=== PATIENT | female | born 1935 | race Caucasian/White ===

== ENCOUNTER 2020-06-10 07:59 | Observation (INO) | payer MEDICARE ==
[~2020-06-10] VITALS: Ht 161.3 cm; Wt 58.0 kg
[~2020-06-10 07:59] MED LIST: KEFLEX500 MG PO
--- NOTE | 2020-06-10 08:00 | NUR ---
PATIENT TO ROOM VIA EMS MD OTILIA AT BEDSIDE TO ASSESS PT.
--- NOTE | 2020-06-10 08:10 | NUR ---
STROKE ALERT CALLED AT 0810. PATIENT TAKEN TO CT SCAN AT 0811 DR ROMERO ON SCREEN AT 0813, HISTORY WAS GIVEN.
--- NOTE | 2020-06-10 08:20 | NUR ---
AFTER CT BRAIN WAS COMPLETED, NIH COMPLETED. DR VALENZUELA DOES NOT WANT TPA AND WOULD LIKE A NEURO WORKUP. HE WILL BE CONTACCTING DR SIMONS WITH PLAN OF CARE.
--- NOTE | 2020-06-10 08:40 | NUR ---
PATIENT RETURNED FROM CT SCAN IN STABLE CONDITION. UPDATED ON PLAN OF CARE AND PENDING RESULTS.
[2020-06-10 08:51] LABS: HEMATOCRIT 44.2 % (37.0-47.0); HEMOGLOBIN 13.8 g/dl (12.0-16.0); IMMATURE GRANULOCYTES 0.4 % (0.0-5.0); MEAN CELL VOLUME 96.9 fL CALC (80.0-100.0); MEAN CORPUSCULAR HGB 30.3 pG CALC (26.0-32.0); MEAN CORPUSCULAR HGB CONC 31.2 g/dL CAL (32.0-36.0); NEUT# 4.95 thou/uL (2.00-7.15); RED BLOOD COUNT 4.56 mill/uL (4.20-5.60); RED CELL DISTRI WIDTH 14.1 % (11.5-15.5)
--- NOTE | 2020-06-10 09:00 | NUR ---
DR SIMONS AT BEDSIDE TO STAND PATIENT UP. SHE WAS ABLE TO STAND WITH ASSIST AND WEAKNESS NOTED TO RIGHT SIDE ONLY WHEN STANDING.
[2020-06-10 09:03] LABS: ALBUMIN 4.4 g/dL (3.2-5.0); ALKALINE PHOSPHATASE 81 u/l (38-126); ANION GAP 12 (6-22 (CALC)); BILIRUBIN, TOTAL 0.5 mg/dL (0.0-1.4); BUN 16 mg/dL (8-23); BUN/CREATININE RATIO 26 (12-20 (CALC)); CARBON DIOXIDE 26 mmol/l (22-30); CHLORIDE 104 mmol/l (95-108); CREATININE 0.6 mg/dL (0.5-1.0); GFR > 60 ML/MIN (>=60 (CALC)); GFR FOR AFR.AMER. > 60 ML/MIN (>=60 (CALC)); POTASSIUM 4.1 mmol/l (3.5-5.1); SGOT/AST 33 u/l (9-36); SODIUM 137 mmol/l (137-146); TOTAL PROTEIN 7.9 g/dL (6.3-8.2)
[2020-06-10 09:04] LABS: PROTHROMBIN TIME 9.6 SECONDS (9.0-12.5)
--- NOTE | 2020-06-10 09:30 | NUR ---
PATIENT RESTING IN STRETCHER IN NAD AND DENIES ANY NEEDS. SPEECH REMAINS CLEAR.
[2020-06-10 09:45] LABS: URINE BILIRUBIN - DIPSTICK NEGATIVE (NEGATIVE); URINE BLOOD DIPSTICK NEGATIVE (NEGATIVE); URINE COLOR YELLOW; URINE GLUCOSE - DIPSTICK NEGATIVE (NEGATIVE); URINE KETONE NEGATIVE (NEGATIVE); URINE NITRITE - DIPSTICK NEGATIVE (Negative); URINE PROTEIN - DIPSTICK NEGATIVE (NEG-TRACE); URINE UROBILINOGEN - DIPSTICK 0.2 E.U./dL (0.2)
[2020-06-10 09:50] LABS: URINE LEUK ESTERASE MODERATE (NEGATIVE)
[2020-06-10 09:51] LABS: URINE BACTERIA RARE hpf
--- NOTE | 2020-06-10 10:09 | NUR ---
recieved for care. Awaiting admission. no c/o call richardson in reach.
--- NOTE | 2020-06-10 10:39 | NUR ---
assisted to bedpan.
--- NOTE | 2020-06-10 11:25 | NUR ---
Occupational therapist at bedside
--- NOTE | 2020-06-10 12:25 | NUR ---
SPOUSE DEPARTED,PATIENT SITTING IN CHAIR. STABLE. CALL AGUIAR IN REACH
--- NOTE | 2020-06-10 12:44 | NUR ---
PATIENT SITTING AT BEDSIDE FEELING MONITOR CABLES. REASSURRED THEY ARE FOR MONITORING HER STATUS. PATIENT APPEARS CONFUSED BUT FRIENDLY.
--- NOTE | 2020-06-10 12:46 | NUR ---
PATIENT SEATED IN CHAIR AT BEDSIDE. CALL AGUIAR WITHIN REACH.
--- NOTE | 2020-06-10 14:00 | NUR ---
PATIENTSPOUSE TO DESK, STATES HE WOULD LIKE TO TAKE HIS HOME AND SIGN OUT AMA. REQUESTS TO SEE [facility] TO POSSIBLY GET SOME RESOURCES FOR ASSISTANCE AT HOME.
--- NOTE | 2020-06-10 14:05 | NUR ---
FISHING VESSEL MATE PRESENT TO DISCUSS .
--- NOTE | 2020-06-10 14:18 | NUR ---
Patient decides to leave AMA. Multiple attempts made to ecourage patient to remain here for continued treatment. Explained to patient all risks of leaving against medical advice including . Pt verbalized understanding of all risks. Pt also encouraged to return to [facility] at any time, especially if symptoms continue or become worse. Pt verbalized understanding.
[2020-06-10 14:19] VITALS: BP 128/78
== END 2020-06-10 14:19 | disposition left against medical advice (07) ==
LOC: ED 07:59 → ED-I 09:37 → ED 09:45 → ED-I 09:46 → ED 14:19 → ED-I 14:19
PROVIDERS: Family Medicine; ADMIT Internal Medicine; ATTEND Internal Medicine
DX: G45.9 Transient cerebral ischemic attack, unspecified (principal); F03.90 Unspecified dementia, unspecified severity, without behavioral disturbance, psychotic disturbance, mood disturbance, and anxiety; Z20.822 Contact with and (suspected) exposure to COVID-19
CPT/HCPCS: Q9967

== ENCOUNTER 2022-08-17 10:42 | Emergency (ER) | payer MEDICARE ==
[~2022-08-17] VITALS: Ht 160 cm; Wt 66.9 kg
[2022-08-17 10:54] VITALS: BP 143/83
[2022-08-17 11:00] VITALS: BP 119/70
[2022-08-17 11:35] LABS: BASO% 0.8 % (0-3); EOS% 1.1 % (0-8); HEMATOCRIT 44.3 % (37.0-47.0); HEMOGLOBIN 14.2 g/dl (12.0-16.0); IMMATURE GRANULOCYTES 0.2 % (0.0-5.0); LYMPH% 14.1 % (15-41); MEAN CELL VOLUME 94.7 fL CALC (80.0-100.0); MEAN CORPUSCULAR HGB 30.3 pG CALC (26.0-32.0); MEAN CORPUSCULAR HGB CONC 32.1 g/dL CAL (32.0-36.0); MONO% 8.2 % (2-13); NEUT# 3.97 thou/uL (2.00-7.15); NEUT% 75.6 % (42-76); RED BLOOD COUNT 4.68 mill/uL (4.20-5.60); RED CELL DISTRI WIDTH 13.4 % (11.5-15.5)
[2022-08-17 11:47] LABS: ALKALINE PHOSPHATASE 102 u/l (38-126); ANION GAP 7 (6-22 (CALC)); BUN 19 mg/dL (8-23); BUN/CREATININE RATIO 26 (12-20 (CALC)); CARBON DIOXIDE 26 mmol/l (22-30); CHLORIDE 107 mmol/l (95-108); CREATININE 0.7 mg/dL (0.5-1.0); GFR FOR AFR.AMER. > 60 ML/MIN (>=60 (CALC)); GFR OTHER RACES > 60 ML/MIN (>=60 (CALC)); POTASSIUM 3.8 mmol/l (3.5-5.1); SGOT/AST 32 u/l (9-36); SODIUM 135 mmol/l (137-146)
[2022-08-17 11:51] LABS: ALBUMIN 2.4 g/dL (3.2-5.0); TOTAL PROTEIN 5.6 g/dL (6.3-8.2)
[2022-08-17 12:48] LABS: URINE BILIRUBIN - DIPSTICK NEGATIVE (NEGATIVE); URINE BLOOD DIPSTICK SMALL (NEGATIVE); URINE COLOR YELLOW; URINE KETONE NEGATIVE (NEGATIVE); URINE LEUK ESTERASE NEGATIVE (NEGATIVE); URINE PROTEIN - DIPSTICK >=300 mg/dL (NEG-TRACE); URINE UROBILINOGEN - DIPSTICK 0.2 E.U./dL (0.2)
[2022-08-17 13:00] LABS: URINE GLUCOSE - DIPSTICK NEGATIVE (NEGATIVE); URINE NITRITE - DIPSTICK NEGATIVE (Negative)
[2022-08-17 13:01] LABS: URINE EPITHELIAL CELLS FEW EPI/hpf (0-FEW); URINE MUCUS MODERATE hpf (NONE-FEW); URINE RBC 0-2 RBC/hpf (0-5)
[2022-08-17 14:30] VITALS: BP 160/112
== END 2022-08-17 14:16 | disposition home or self-care (01) ==
LOC: ED 10:42
PROVIDERS: Family Medicine
DX: R53.1 Weakness (principal); Z20.822 Contact with and (suspected) exposure to COVID-19